=== PATIENT | male | born 1980 | race Two or more races ===

== ENCOUNTER 2024-02-24 09:24 | Emergency (ER) | payer OTHER ==
[~2024-02-24] VITALS: Ht 185.4 cm; Wt 111.0 kg
[2024-02-24 11:08] LABS: Chloride 104 mmol/L (98-107); Potassium 4.1 mmol/L (3.5-5.1); Sodium 136 mmol/L (136-145)
[2024-02-24 11:09] LABS: Anion Gap 3 (5-15); Basophils # (auto) 0 10 ^3/uL (0-0.2); Basophils % (auto) 0.7 % (0.0-2.0); Calcium 9.7 mg/dL (8.7-10.4); Carbon Dioxide 29 mmol/L (20-30); Eosinophils # (auto) 0 10 ^3/uL (0-0.8); Eosinophils % (auto) 0.7 % (0.0-7.0); Hematocrit 45.4 % (41.0-53.0); Hemoglobin 15.8 g/dL (13.5-17.5); Lymphocytes # (auto) 2.2 10 ^3/uL (0.4-5.4); Lymphocytes % (auto) 33.4 % (10.0-50.0); Mean Corpuscular Hemoglobin 29.5 pg (28.0-32.0); Mean Corpuscular Hgb Conc. 34.7 g/dL (32.0-36.0); Mean Corpuscular Volume 84.8 fL (80.0-100.0); Monocytes # (auto) 0.4 10 ^3/uL (0-1.3); Monocytes % (auto) 6.6 % (0.0-12.0); Neutrophils # (auto) 3.9 10 ^3/uL (1.6-8.6); Neutrophils % (auto) 58.6 % (37.0-80.0); Platelet Count (auto) 240 10^3/uL (140-450); Red Blood Cells 5.35 10^6/uL (4.5-5.90); Red Cell Distribution Width 13.8 % (11.8-14.3); White Blood Cell 6.6 10^3/uL (4.4-10.8)
[2024-02-24 11:14] LABS: BUN/Creatinine Ratio 9.9 (10.0-20.0); Blood Urea Nitrogen 8 mg/dL (9-23); Glucose 109 mg/dL (74-106)
[2024-02-24 11:15] VITALS: PULSE 71; RESP 16; TEMP 98.6; O2SAT 98
[2024-02-24 11:28] LABS: Urine Bacteria None Seen /hpf (None Seen)
[2024-02-24] MEDS: ONDANSETRON HCL 4 MG/2 ML VIAL IV ONE (11:39)
[2024-02-24] MEDS: MORPHINE SULFATE 4 MG/ML SYR/VIAL IV ONE (11:39)
[2024-02-24] MEDS: SODIUM CHLORIDE 0.9% 1,000 ML IVB ONE (11:40)
[2024-02-24 11:57] LABS: Urine Blood Negative /uL (Negative); Urine Clarity Clear (Clear); Urine Color Yellow (Yellow); Urine Mucus FEW (None Seen); Urine Protein, UAD TRACE (Negative); Urine Specific Gravity 1.024 (1.001-1.035); Urine Urobilinogen Normal (Negative); Urine WBC 1 /hpf (0 - 3)
[2024-02-24] MEDS ORDERED: TRAM50TA2 PO (12:18)
[2024-02-24 12:58] VITALS: BP 108/74; PULSE 68; RESP 16; O2SAT 98
== END 2024-02-24 12:18 | disposition home or self-care (01) ==
LOC: ER 09:24
DX: R10.32 Left lower quadrant pain (principal); R10.9 Unspecified abdominal pain; R11.2 Nausea with vomiting, unspecified; R19.7 Diarrhea, unspecified; I10 Essential (primary) hypertension; E11.9 Type 2 diabetes mellitus without complications; Z79.899 Other long term (current) drug therapy
CPT/HCPCS: 36415; 74176; 80048; 81001; 82962; 85025; 96361; 96374; 96375; 99285; J2270; J2405; J7030